=== PATIENT | female | born 2000 | race Caucasian/White ===

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

== ENCOUNTER 2019-06-08 21:56 | Emergency (ER) | payer OTHER ==
[~2019-06-08] VITALS: Ht 160 cm; Wt 95.5 kg
[2019-06-08 22:06] VITALS: Ht 160 cm; Wt 95.5 kg
[2019-06-08 22:37] VITALS: BP 137/86
== END 2019-06-08 22:37 | disposition home or self-care (01) ==
LOC: ED 21:56
DX: N39.0 Urinary tract infection, site not specified (principal); R11.0 Nausea

== ENCOUNTER 2020-01-02 09:22 | Inpatient (IN) | payer OTHER ==
[~2020-01-02] VITALS: Ht 162.6 cm; Wt 93.4 kg
[2020-01-02 09:44] VITALS: Ht 162.6 cm; Wt 93.4 kg
--- NOTE | 2020-01-02 10:00 | NUR ---
PT BIB SELF C/O RLQ PAIN X 1DAY THAT HAS WORSENED TODAY. PT REPORTS "THIS PAIN JUST HURTS. MY LAST BM WAS AN HOUR BEFORE I GOT HERE". PT AAOX4, RESP E/U, PLACED ON FULL CM, NSR NOTED. AWAITING MD ENRIQUEZ. WILL CONTINUE TO MONITOR.
--- NOTE | 2020-01-02 10:27 | NUR ---
MD SING AT BEDSIDE FOR EVAL AT THIS TIME.
--- NOTE | 2020-01-02 10:49 | NUR ---
LAB AT BEDSIDE FOR BLOOD DRAW AT THIS TIME. WILL CONTINUE TO MONITOR.
--- NOTE | 2020-01-02 11:06 | NUR ---
ULTRASOUND AT BEDSIDE AT THIS TIME.
[2020-01-02 11:12] LABS: BASOPHIL % 0.7 % (0-2); CALCIUM 8.7 mg/dL (8.5-10.1); CHLORIDE SERUM 105 mmol/L (98-107); CREATININE SERUM 0.6 mg/dL (0.6-1.0); GFR1 > 60 mL/min; GLUCOSE SERUM 110 mg/dL (74-106); PLATELET COUNT 347 x10^3mcL (130-400); POTASSIUM SERUM 3.6 mmol/L (3.5-5.1); RED CELL DISTRIBUTION WIDTH 12.7 % (11.5-14.5); SODIUM SERUM 138 mmol/L (136-145)
[2020-01-02 11:19] LABS: ALBUMIN 3.5 g/dL (3.4-5.0); ALKALINE PHOSPHATASE 59 U/L (46-116); ALT/SGPT 19 U/L (14-59); AST/SGOT 10 U/L (15-37); BILIRUBIN TOTAL 0.6 mg/dL (0.20-1.00); TOTAL PROTEIN, SERUM 7.3 g/dL (6.4-8.2)
--- NOTE | 2020-01-02 11:40 | NUR ---
PT NOTED TKANE TO CT VIA ER WHEELCHAIR VIA ER JAYRFRANCINE AT THIS TIME. NO AD NOTED.
--- NOTE | 2020-01-02 11:57 | NUR ---
PT RETURNED FROM CT VIA ER WHEELCHAIR, VSS AT THIS TIME, NO AD NOTED.
--- NOTE | 2020-01-02 12:07 | NUR ---
PT NOTED AMBULATORY TO ER RESTROOM WITH STEADY GAIT. NO AD NOTED. WILL CONTINUE TO MONITOR.
--- NOTE | 2020-01-02 12:24 | NUR ---
MEDICATED PT PER MD ORDERS, PT TOLERATED WELL, PLEASE SEE EMAR. WILL CONTINUE TO MONITOR.
--- NOTE | 2020-01-02 13:20 | NUR ---
LAB AT BEDSIDE FOR BLOOD CULTURE AT THIS TIME
--- NOTE | 2020-01-02 13:31 | NUR ---
MEDICATED PT PER MD ORDERS, PLEASE SEE EMAR.
--- NOTE | 2020-01-02 16:43 | NUR ---
PT AMBULATORY TO ER RESTROOM WITH STEADY GAIT AT THIS TIME.
--- NOTE | 2020-01-02 19:48 | NUR ---
RECEIVED PT VIA GURNEY FROM E/D, ACCOMPANIED BY TRANSPORTER. PT A/A/O X 4, CALM, COOPERATIVE. DENIES CHEST PAIN OR DISCOMFORT AT THIS TIME. NO ACUTE RESPIRATORY DISTRESS NOTED. ABD SOFT, ROUND, TENDERNESS UPON PALPATION AROUND SX SITES (X4, ALL COVERED W/ BAND-AIDS, CDI), HYPOACTIVE BOWEL SOUNDS X 4 QUADS, LAST BM 01/02/2020, DIARRHEA (GREEN, FOUL-SMELLING), +NAUSEA. PT W/ MILD GENERALIZED WEAKNESS, AMBULATORY @ BASELINE, FALL RISK PROTOCOL IN PLACE. IV SITE LH 20G, CDI. ORIENTED PT TO ROOM, BED CONTROLS, CALL LIGHT SYSTEM. SIDE RAILS UP X 2, BED IN LOW POSITION. WILL ENDORSE TO HARLEEN ALEXANDRA.
[2020-01-02 21:15] VITALS: BP 109/62
--- NOTE | 2020-01-03 03:54 | NUR ---
Pt. resting throughout shift, able to make needs known, no acute distress noted, will cont. to monitor pt.
[2020-01-03 04:46] VITALS: BP 133/87
--- NOTE | 2020-01-03 05:17 | NUR ---
Pt. resitng throughout shfit, able to make needs known, given pain medication x1, pt. states able to help her sleep. Pt. ambulated to restroom, stating in pain, educated pt. to call in 30 mins if pain doens't subside, will cont. to monitor and endorse care to next shift RN.
--- NOTE | 2020-01-03 07:15 | NUR ---
RECEIVED REPORT FROM NIGHTSHIFT RN. PATIENT SLEEPING IN BED. CARE BOARD UPDATED, CALL LIGHT WITHIN REACH. WILL CONTINUE TO MONITOR
[2020-01-03 07:27] LABS: PLATELET COUNT 351 x10^3mcL (130-400)
[2020-01-03 07:52] LABS: CALCIUM 8.9 mg/dL (8.5-10.1); CHLORIDE SERUM 104 mmol/L (98-107); CREATININE SERUM 0.6 mg/dL (0.6-1.0); GFR1 > 60 mL/min; GLUCOSE SERUM 122 mg/dL (74-106); POTASSIUM SERUM 3.9 mmol/L (3.5-5.1); SODIUM SERUM 139 mmol/L (136-145)
[2020-01-03 08:29] LABS: BASOPHIL % 0 % (0-2)
[2020-01-03 08:59] VITALS: BP 113/68
[2020-01-03 12:33] VITALS: BP 107/67
[2020-01-03 14:20] VITALS: BP 107/67
--- NOTE | 2020-01-03 14:43 | NUR ---
PATIENT REPORTS PAIN IS BETTER CONTROLLED WITH THE NORCO 10MG. PATIENT AMBULATED IN THE HALLWAY, MULTIPLE LAPS. TOLERATED FAIRLY WELL, SAT DOWN TO RECOVER AFTER ABOUT 2 LAPS. NO ADDITIONAL PAIN MEDICATION NEEDED. PATIENT TOLERATED LUNCH AT ALMOST ALL OF CLEAR LIQUID TRAY. PLAN FOR DISCHARGE TODAY
--- NOTE | 2020-01-03 16:36 | NUR ---
PATIENT ADMITTED FOR APPENDICITIS NOW S/P APPENDECTOMY. PATIENT A&OX4, ROOM AIR, VITALS STABLE, VOIDING FREELY, AMBULATING IN THE HALLWAY. TOLERATING DIET WITH NO C/O N/V. PAIN MANAGED WELL NORCO 10MG Q4H PRN. dISCHARGE INSTRUCTIONS PRINTED AND REVIEWED. ALL MEDICATIONS DISCUSSED THOROUGHLY. WOUND CARE INSTRUCTIONS PROVIDED AND DISCUSSED. SPOKE WITH DR. BERNARDO WHO APPROVED TIME OFF OF WORK UNTIL HER FOLLOW UP VISIT ON 01/18/20. PATIENT PROVIDED WITH HARD SCRIPT FOR NORCO. DISCUSSED DISCHARGE INSTRUCTIONS WITH THE PATIENTS MOTHER WELL. PATIENT LEFT UNIT VIA WHEELCHAIR ACCOMPANIED BY THIS RN IN NO APPARENT DISTRESS. IV ACCESS REMOVED WITHOUT COMPLICATIONS. ALL QUESTIONS AND CONCERNS ADDRESSED.
== END 2020-01-03 16:30 | disposition home or self-care (01) | DRG 234 ==
LOC: ED 09:22 → MU 13:37
PROVIDERS: Emergency Medicine; Surgery; ADMIT Internal Medicine; ATTEND Internal Medicine
PROC: 0DTJ4ZZ Resection of Appendix, Percutaneous Endoscopic Approach (ICD-10-PCS; principal; 2020-01-02 18:00)
DX: K35.80 Unspecified acute appendicitis (principal)
CPT/HCPCS: G0378; J1170; J2175; J2250; J2270; J2405; J2543; J3010; J3490; J7030; Q0092